=== PATIENT | male | born 1980 | race Caucasian/White ===

== ENCOUNTER 2023-05-28 18:47 | Inpatient (IN) | payer SELFPAY ==
[2023-05-28 18:51] VITALS: BP 172/90; PULSE 101; RESP 18; TEMP 36.8; O2SAT 100; BMI 27.6
--- NOTE | 2023-05-28 19:02 | XR_ITS ---
The [address] [address] Patient Name: CHRISTIANO FARRELL MRN: [id number] date: 1980 Sex: M Assigned Patient Location: ED.MAIN Current Patient Location: ER Accession/Order Number: [id number] Exam Date: 05/28/2023 20:00 Report Date: 05/28/2023 20:56 At the request of: JUDAH BYERS Procedure: XR foot RT min 3V EXAM: XR foot RT min 3V HISTORY: Infection COMPARISON: None. TECHNIQUE: 3 views of the right foot are performed. FINDINGS: There is lucency and bony erosion involving the distal phalanx of the great toe. There is soft tissue swelling, and soft tissue gas. Diffuse soft tissue edema is seen overlying the dorsal aspect of the foot. Atherosclerotic vascular calcific lesions are present. XR/XR foot RT min 3V IMPRESSION: Osteomyelitis involving the distal first phalanx. There is soft tissue gas. Electronically authenticated by: PADMINI HOLLEY Date: 05/28/2023 20:56
--- NOTE | 2023-05-28 19:03 | ED_ITS ---
Documented by User: Alena Powellon 05/28/23 21:46 HPI - General Adult General Chief complaint: Extremity Problem, Nontraumatic Stated complaint: Abscess on right foot Time Seen by Provider: 05/28/23 18:57 Source: patient Mode of arrival: walk-in Limitations: no limitations History of Present Illness HPI narrative: 43 year old male presents to the ED for a wound to his right great toe. Onset was 3 weeks ago. Reports it started as a callus that became infected. Reports having to wear a new pair of steel toe boots at work which he believes made it worse. He has since developed increased swelling, erythema. The area has also opened and has been bleeding. Denies fever, chills, weakness. Denies known hx DM. Rates his pain 5/10 at this time. Related Data Previous Rx's Medication Instructions Recorded doxycycline hyclate 100 mg capsule 100 mg PO BID 14 days #28 caps 05/30/23 hydrocodone 5 mg-acetaminophen 325 1 tab PO Q6H PRN pain 7 days #28 05/30/23 mg tablet tabs ondansetron 4 mg disintegrating 4 mg PO Q8H PRN nausea and 05/30/23 tablet vomiting 5 days #15 tabs sennosides 8.6 mg tablet (Senna 8.6 mg PO DAILY PRN constipation 7 05/30/23 Laxative) days #7 tabs sulfamethoxazole 800 1 tab PO BID 14 days #28 tabs 05/30/23 mg-trimethoprim 160 mg tablet Allergies Allergy/AdvReac Type Severity Reaction Status Date / Time No Known Drug Allergies Allergy Verified 05/28/23 18:51 Review of Systems ROS Constitutional Denies: fever or chills Cardiovascular Denies: chest pain Respiratory Denies: shortness of breath Musculoskeletal Reports: extremity pain Integumentary/Breast Reports: skin swelling, non-healing lesion and changes in skin color Neurological Denies: numbness in extremities or weakness in extremities PFSH PFSH Surgical History (Updated 05/28/23 @ 22:35 by Ni Luevano RN) Hx of tonsillectomy ?Z90.89 - Acquired absence of other organs (ICD-10) Social History (Updated 05/28/23 @ 22:52 by Ni Luevano RN) Within the past year, how often did you have a drink containing alcohol: 2-4 times a month Within the past year, how many standard drinks containing alcohol did you have on a typical day: 3 or 4 Within the past year, how often did you have six or more drinks on one occasion: weekly Total score: 5 Score interpretation: A score of 4 or more indicates drinking is likely to affect patient's safety. Smoking status: Former smoker Non-prescribed substance use: cannabis (any form) Highest level of school completed/degree received: high school graduate Are you now , , , , never or living with a partner: living with partner In a typical week, how many times do you talk on the telephone with family, friends, or neighbors: 3 or more times per week How often do you get together with friends or relatives: 3 or more times per week Little interest or pleasure in doing things: not at all Feeling down, depressed, or hopeless: not at all Feel stressed/tense/nervous/anxious/difficulty sleeping: not at all Do you think of yourself as: straight/heterosexual Gender Identity: male Exam Constitutional Vital Signs, click to edit/add: Last Vital Signs Temp 98.1 F 05/30/23 05:24 Pulse 87 05/30/23 05:24 Resp 18 05/30/23 05:24 BP 156/93 H 05/30/23 05:24 Pulse Ox 96 05/30/23 05:24 O2 Del Method Room Air 05/30/23 05:24 Common normals: no apparent distress and oriented x3 General appearance: cooperative Eye Common normals: conjunctivae normal and no scleral icterus Neck & C-Spine Common normals: supple Chest Chest: symmetrical chest wall rise Respiratory Common normals: normal respiratory effort Effort & inspection: symmetric chest movement Cardio Common normals: regular rate Peripheral pulses: posterior tibial pulses present and dorsalis pedis pulses present Extremity Other: Wound to right medial great toe. There is erythema, significant swelling to the great toe. There is an erythematous streak that extends up the foot and to the lower leg. Foul odor noted. Bloody drainage from the area currently. Neuro Common normals: oriented x3 Sensorium/orientation: awake and alert Speech: speech normal Course Vital Signs Vital signs: Vital Signs Temperature 98.3 F 05/28/23 18:51 Pulse Rate 101 H 05/28/23 18:51 Respiratory Rate 18 05/28/23 18:51 Blood Pressure 172/90 H 05/28/23 18:51 Pulse Oximetry 100 05/28/23 18:51 Oxygen Delivery Method Room Air 05/28/23 18:51 Temperature 98.1 F 05/30/23 05:24 Pulse Rate 87 05/30/23 05:24 Respiratory Rate 18 05/30/23 05:24 Blood Pressure 156/93 H 05/30/23 05:24 Pulse Oximetry 96 05/30/23 05:24 Oxygen Delivery Method Room Air 05/30/23 05:24 Medical Decision Making MDM Narrative Medical decision making narrative: WBC count was 13.6, sed rate 96, CRP 5.25. X-ray showed osteomyelitis involving the distal first phalanx; there is soft tissue gas. The patient was started on IV antibiotics. He will be admitted for further evaluation and treatment. I spoke with Dr. Martinez for podiatry. I spoke with Dr. Kathrine Rasmussen the hospitalist who accepted the patient for admission. A complete and detailed handoff report was given. The patient will be admitted to Dr. Logan. Differential Diagnosis Differential Diagnosis: Cellulitis, osteomyelitis. Medical Records Medical records reviewed: Yes I reviewed the patient's medical records Lab Data Lab results reviewed: Yes I reviewed the patient's lab results Labs: Lab Results 05/28/23 05/28/23 Range/Units 19:05 19:20 WBC 13.6 H (4.0-11.0) 10^3/uL RBC 4.42 L (4.70-6.10) 10^6/uL Hgb 12.2 L (14.0-18.0) g/dL Hct 37.5 L (42.0-54.0) % MCV 84.8 (80.0-94.0) fL MCH 27.6 (25.9-34.0) pg MCHC 32.5 (29.9-35.2) g/dL RDW 12.6 (11.0-15.0) % Plt Count 397 (150-450) 10^3/uL MPV 9.7 (9.5-13.5) fL Neut % (Auto) 76.7 H (43.0-75.0) % Lymph % (Auto) 14.8 L (20.5-60.0) % [place] % (Auto) 6.0 (1.7-12.0) % Eos % (Auto) 1.6 (0.9-7.0) % Baso % (Auto) 0.7 (0.2-2.0) % Neut # (Auto) 10.4 H (1.4-6.5) 10^3/uL Lymph # (Auto) 2.0 (1.2-3.8) 10^3/uL [place] # (Auto) 0.8 (0.3-0.8) 10^3/uL Eos # (Auto) 0.2 (0.0-0.7) 10^3/uL Baso # (Auto) 0.1 (0.0-0.1) 10^3/uL Abs Immat Gran (auto) 0.03 (0.00-0.03) 10^3/uL Imm/Tot Granulo (auto) 0.2 (0.0-0.5) % ESR 96 H (<=15) mm/hr Sodium 135 L (136-145) mmol/L Potassium 3.9 (3.5-5.1) mmol/L Chloride 99 (98-107) mmol/L Carbon Dioxide 29.3 (21.0-32.0) mmol/L Anion Gap 10.6 BUN 12.0 (7.0-18.0) mg/dL Creatinine 0.98 (0.70-1.30) mg/dL Est GFR ( Amer) >60 (>=60) Est GFR (Non-Af Amer) >60 (>=60) BUN/Creatinine Ratio 12.2 Glucose 183 H (74-106) mg/dL Lactate 1.3 (0.4-2.0) mmol/L Calcium 9.8 (8.5-10.1) mg/dL C-Reactive Protein 5.25 H (<=0.50) mg/dL POC Glucose 174 H (74-106) mg/dL Imaging Data XR right foot: Attestation: I have reviewed the pertinent imaging results. Radiologist's impression: Procedure: XR foot RT min 3V EXAM: XR foot RT min 3V HISTORY: Infection COMPARISON: None. TECHNIQUE: 3 views of the right foot are performed. FINDINGS: There is lucency and bony erosion involving the distal phalanx of the great toe. There is soft tissue swelling, and soft tissue gas. Diffuse soft tissue edema is seen overlying the dorsal aspect of the foot. Atherosclerotic vascular calcific lesions are present. XR/XR foot RT min 3V IMPRESSION: Osteomyelitis involving the distal first phalanx. There is soft tissue gas. Electronically authenticated by: PADMINI HOLLEY Date: 05/28/2023 20:56 Discharge Plan Discharge Chief Complaint: Extremity Problem, Nontraumatic Clinical Impression: Osteomyelitis of great toe of right foot Patient Disposition: Admitted as Observation Time of Disposition Decision: 21:36 Condition: Good Discharge Date/Time: 05/28/23 22:15 Documented by User: Yoko Wheatley MD 05/29/23 03:57 HPI - General Adult General Chief complaint: Extremity Problem, Nontraumatic Stated complaint: Abscess on right foot Time Seen by Provider: 05/28/23 18:57 Related Data Previous Rx's Medication Instructions Recorded doxycycline hyclate 100 mg capsule 100 mg PO BID 14 days #28 caps 05/30/23 hydrocodone 5 mg-acetaminophen 325 1 tab PO Q6H PRN pain 7 days #28 05/30/23 mg tablet tabs ondansetron 4 mg disintegrating 4 mg PO Q8H PRN nausea and 05/30/23 tablet vomiting 5 days #15 tabs sennosides 8.6 mg tablet (Senna 8.6 mg PO DAILY PRN constipation 7 05/30/23 Laxative) days #7 tabs sulfamethoxazole 800 1 tab PO BID 14 days #28 tabs 05/30/23 mg-trimethoprim 160 mg tablet Allergies Allergy/AdvReac Type Severity Reaction Status Date / Time No Known Drug Allergies Allergy Verified 05/28/23 18:51 PFSH PFSH Surgical History (Updated 05/28/23 @ 22:35 by Ni Luevano RN) Hx of tonsillectomy ?Z90.89 - Acquired absence of other organs (ICD-10) Social History (Updated 05/28/23 @ 22:52 by Ni Luevano RN) Within the past year, how often did you have a drink containing alcohol: 2-4 times a month Within the past year, how many standard drinks containing alcohol did you have on a typical day: 3 or 4 Within the past year, how often did you have six or more drinks on one occasion: weekly Total score: 5 Score interpretation: A score of 4 or more indicates drinking is likely to affect patient's safety. Smoking status: Former smoker Non-prescribed substance use: cannabis (any form) Highest level of school completed/degree received: high school graduate Are you now , , , , never or living with a partner: living with partner In a typical week, how many times do you talk on the telephone with family, friends, or neighbors: 3 or more times per week How often do you get together with friends or relatives: 3 or more times per week Little interest or pleasure in doing things: not at all Feeling down, depressed, or hopeless: not at all Feel stressed/tense/nervous/anxious/difficulty sleeping: not at all Do you think of yourself as: straight/heterosexual Gender Identity: male Exam Constitutional Vital Signs, click to edit/add: Last Vital Signs Temp 98.1 F 05/30/23 05:24 Pulse 87 05/30/23 05:24 Resp 18 05/30/23 05:24 BP 156/93 H 05/30/23 05:24 Pulse Ox 96 05/30/23 05:24 O2 Del Method Room Air 05/30/23 05:24 Course Vital Signs Vital signs: Vital Signs Temperature 98.3 F 05/28/23 18:51 Pulse Rate 101 H 05/28/23 18:51 Respiratory Rate 18 05/28/23 18:51 Blood Pressure 172/90 H 05/28/23 18:51 Pulse Oximetry 100 05/28/23 18:51 Oxygen Delivery Method Room Air 05/28/23 18:51 Temperature 98.1 F 05/30/23 05:24 Pulse Rate 87 05/30/23 05:24 Respiratory Rate 18 05/30/23 05:24 Blood Pressure 156/93 H 05/30/23 05:24 Pulse Oximetry 96 05/30/23 05:24 Oxygen Delivery Method Room Air 05/30/23 05:24 Medical Decision Making MDM Narrative Medical decision making narrative: WBC count was 13.6, sed rate 96, CRP 5.25. X-ray showed osteomyelitis involving the distal first phalanx; there is soft tissue gas. The patient was started on IV antibiotics. He will be admitted for further evaluation and treatment. I spoke with Dr. Martinez for podiatry. I spoke with Dr. Kathrine Rasmussen the hospitalist who accepted the patient for admission. A complete and detailed handoff report was given. The patient will be admitted to Dr. Logan. This 43-year-old male was seen and evaluated in conjunction with the nurse practitioner. Please refer to her full H and P. He presents for evaluation of marked redness, swelling, drainage and tenderness to the right great toe. He states this has been going on for several weeks. He has had callus on this foot for a period of time and has to wear steel toed boots. He states he has to stand at his job for 8 hours a day. He denies a history of MRSA. He denies a history of diabetes. There is lymphangitic streaking up the medial aspect of the right leg as well as the marked swelling and obvious infection of the right great toe. An IV was placed and he was medicated with IV fluids and Unasyn. His elevated white count at 13.6, elevated sedimentation rate and CRP. X-ray of the extremity shows osteomyelitis with soft tissue gas. The case was discussed with Dr. Martinez and he will be seen in consultation and admitted to the hospitalist service. He does not appear to be toxic or septic. Lab Data Lab results reviewed: Yes I reviewed the patient's lab results (He'll allocate a white count at 13.6, elevated sedimentation rate, ) Labs: Lab Results 05/28/23 05/28/23 Range/Units 19:05 19:20 WBC 13.6 H (4.0-11.0) 10^3/uL RBC 4.42 L (4.70-6.10) 10^6/uL Hgb 12.2 L (14.0-18.0) g/dL Hct 37.5 L (42.0-54.0) % MCV 84.8 (80.0-94.0) fL MCH 27.6 (25.9-34.0) pg MCHC 32.5 (29.9-35.2) g/dL RDW 12.6 (11.0-15.0) % Plt Count 397 (150-450) 10^3/uL MPV 9.7 (9.5-13.5) fL Neut % (Auto) 76.7 H (43.0-75.0) % Lymph % (Auto) 14.8 L (20.5-60.0) % [place] % (Auto) 6.0 (1.7-12.0) % Eos % (Auto) 1.6 (0.9-7.0) % Baso % (Auto) 0.7 (0.2-2.0) % Neut # (Auto) 10.4 H (1.4-6.5) 10^3/uL Lymph # (Auto) 2.0 (1.2-3.8) 10^3/uL [place] # (Auto) 0.8 (0.3-0.8) 10^3/uL Eos # (Auto) 0.2 (0.0-0.7) 10^3/uL Baso # (Auto) 0.1 (0.0-0.1) 10^3/uL Abs Immat Gran (auto) 0.03 (0.00-0.03) 10^3/uL Imm/Tot Granulo (auto) 0.2 (0.0-0.5) % ESR 96 H (<=15) mm/hr Sodium 135 L (136-145) mmol/L Potassium 3.9 (3.5-5.1) mmol/L Chloride 99 (98-107) mmol/L Carbon Dioxide 29.3 (21.0-32.0) mmol/L Anion Gap 10.6 BUN 12.0 (7.0-18.0) mg/dL Creatinine 0.98 (0.70-1.30) mg/dL Est GFR ( Amer) >60 (>=60) Est GFR (Non-Af Amer) >60 (>=60) BUN/Creatinine Ratio 12.2 Glucose 183 H (74-106) mg/dL Lactate 1.3 (0.4-2.0) mmol/L Calcium 9.8 (8.5-10.1) mg/dL C-Reactive Protein 5.25 H (<=0.50) mg/dL POC Glucose 174 H (74-106) mg/dL Discharge Plan Discharge Chief Complaint: Extremity Problem, Nontraumatic Clinical Impression: Osteomyelitis of great toe of right foot Patient Disposition: Admitted as Observation Time of Disposition Decision: 21:36 Condition: Good Discharge Date/Time: 05/28/23 22:15 Documented by User: Irving Arevalo MD 05/30/23 08:39 HPI - General Adult General Chief complaint: Extremity Problem, Nontraumatic Stated complaint: Abscess on right foot Time Seen by Provider: 05/28/23 18:57 Related Data Previous Rx's Medication Instructions Recorded doxycycline hyclate 100 mg capsule 100 mg PO BID 14 days #28 caps 05/30/23 hydrocodone 5 mg-acetaminophen 325 1 tab PO Q6H PRN pain 7 days #28 05/30/23 mg tablet tabs ondansetron 4 mg disintegrating 4 mg PO Q8H PRN nausea and 05/30/23 tablet vomiting 5 days #15 tabs sennosides 8.6 mg tablet (Senna 8.6 mg PO DAILY PRN constipation 7 05/30/23 Laxative) days #7 tabs sulfamethoxazole 800 1 tab PO BID 14 days #28 tabs 05/30/23 mg-trimethoprim 160 mg tablet Allergies Allergy/AdvReac Type Severity Reaction Status Date / Time No Known Drug Allergies Allergy Verified 05/28/23 18:51 PFSH PFSH Surgical History (Updated 05/28/23 @ 22:35 by Ni Luevano RN) Hx of tonsillectomy ?Z90.89 - Acquired absence of other organs (ICD-10) Social History (Updated 05/28/23 @ 22:52 by Ni Luevano RN) Within the past year, how often did you have a drink containing alcohol: 2-4 times a month Within the past year, how many standard drinks containing alcohol did you have on a typical day: 3 or 4 Within the past year, how often did you have six or more drinks on one occasion: weekly Total score: 5 Score interpretation: A score of 4 or more indicates drinking is likely to affect patient's safety. Smoking status: Former smoker Non-prescribed substance use: cannabis (any form) Highest level of school completed/degree received: high school graduate Are you now , , , , never or living with a partner: living with partner In a typical week, how many times do you talk on the telephone with family, friends, or neighbors: 3 or more times per week How often do you get together with friends or relatives: 3 or more times per week Little interest or pleasure in doing things: not at all Feeling down, depressed, or hopeless: not at all Feel stressed/tense/nervous/anxious/difficulty sleeping: not at all Do you think of yourself as: straight/heterosexual Gender Identity: male Exam Constitutional Vital Signs, click to edit/add: Last Vital Signs Temp 98.1 F 05/30/23 05:24 Pulse 87 05/30/23 05:24 Resp 18 05/30/23 05:24 BP 156/93 H 05/30/23 05:24 Pulse Ox 96 05/30/23 05:24 O2 Del Method Room Air 05/30/23 05:24 Course Vital Signs Vital signs: Vital Signs Temperature 98.3 F 05/28/23 18:51 Pulse Rate 101 H 05/28/23 18:51 Respiratory Rate 18 05/28/23 18:51 Blood Pressure 172/90 H 05/28/23 18:51 Pulse Oximetry 100 05/28/23 18:51 Oxygen Delivery Method Room Air 05/28/23 18:51 Temperature 98.1 F 05/30/23 05:24 Pulse Rate 87 05/30/23 05:24 Respiratory Rate 18 05/30/23 05:24 Blood Pressure 156/93 H 05/30/23 05:24 Pulse Oximetry 96 05/30/23 05:24 Oxygen Delivery Method Room Air 05/30/23 05:24 Medical Decision Making MDM Narrative Medical decision making narrative: WBC count was 13.6, sed rate 96, CRP 5.25. X-ray showed osteomyelitis involving the distal first phalanx; there is soft tissue gas. The patient was started on IV antibiotics. He will be admitted for further evaluation and treatment. I spoke with Dr. Martinez for podiatry. I spoke with Dr. Kathrine Rasmussen the hospitalist who accepted the patient for admission. A complete and detailed handoff report was given. The patient will be admitted to Dr. Logan. Dr Wheatley note This 43-year-old male was seen and evaluated in conjunction with the nurse practitioner. Please refer to her full H and P. He presents for evaluation of marked redness, swelling, drainage and tenderness to the right great toe. He states this has been going on for several weeks. He has had callus on this foot for a period of time and has to wear steel toed boots. He states he has to stand at his job for 8 hours a day. He denies a history of MRSA. He denies a history of diabetes. There is lymphangitic streaking up the medial aspect of the right leg as well as the marked swelling and obvious infection of the right great toe. An IV was placed and he was medicated with IV fluids and Unasyn. His elevated white count at 13.6, elevated sedimentation rate and CRP. X-ray of the extremity shows osteomyelitis with soft tissue gas. The case was discussed with Dr. Martinez and he will be seen in consultation and admitted to the hospitalist service. He does not appear to be toxic or septic. Dr Wheatley saw this patient, not Dr Arevalo Lab Data Labs: Lab Results 05/28/23 05/28/23 Range/Units 19:05 19:20 WBC 13.6 H (4.0-11.0) 10^3/uL RBC 4.42 L (4.70-6.10) 10^6/uL Hgb 12.2 L (14.0-18.0) g/dL Hct 37.5 L (42.0-54.0) % MCV 84.8 (80.0-94.0) fL MCH 27.6 (25.9-34.0) pg MCHC 32.5 (29.9-35.2) g/dL RDW 12.6 (11.0-15.0) % Plt Count 397 (150-450) 10^3/uL MPV 9.7 (9.5-13.5) fL Neut % (Auto) 76.7 H (43.0-75.0) % Lymph % (Auto) 14.8 L (20.5-60.0) % [place] % (Auto) 6.0 (1.7-12.0) % Eos % (Auto) 1.6 (0.9-7.0) % Baso % (Auto) 0.7 (0.2-2.0) % Neut # (Auto) 10.4 H (1.4-6.5) 10^3/uL Lymph # (Auto) 2.0 (1.2-3.8) 10^3/uL [place] # (Auto) 0.8 (0.3-0.8) 10^3/uL Eos # (Auto) 0.2 (0.0-0.7) 10^3/uL Baso # (Auto) 0.1 (0.0-0.1) 10^3/uL Abs Immat Gran (auto) 0.03 (0.00-0.03) 10^3/uL Imm/Tot Granulo (auto) 0.2 (0.0-0.5) % ESR 96 H (<=15) mm/hr Sodium 135 L (136-145) mmol/L Potassium 3.9 (3.5-5.1) mmol/L Chloride 99 (98-107) mmol/L Carbon Dioxide 29.3 (21.0-32.0) mmol/L Anion Gap 10.6 BUN 12.0 (7.0-18.0) mg/dL Creatinine 0.98 (0.70-1.30) mg/dL Est GFR ( Amer) >60 (>=60) Est GFR (Non-Af Amer) >60 (>=60) BUN/Creatinine Ratio 12.2 Glucose 183 H (74-106) mg/dL Lactate 1.3 (0.4-2.0) mmol/L Calcium 9.8 (8.5-10.1) mg/dL C-Reactive Protein 5.25 H (<=0.50) mg/dL POC Glucose 174 H (74-106) mg/dL Discharge Plan Discharge Chief Complaint: Extremity Problem, Nontraumatic Clinical Impression: Osteomyelitis of great toe of right foot Patient Disposition: Admitted as Observation Time of Disposition Decision: 21:36 Condition: Good Discharge Date/Time: 05/28/23 22:15
[2023-05-28 19:13] LABS: Glucometer 174 mg/dL (74-106)
[2023-05-28 19:30] VITALS: PULSE 79
[2023-05-28 19:36] LABS: Basophils Absolute Auto 0.1 10^3/uL (0.0-0.1); Basophils Percent Auto 0.7 % (0.2-2.0); Eosinophils Absolute Auto 0.2 10^3/uL (0.0-0.7); Eosinophils Percent Auto 1.6 % (0.9-7.0); Hematocrit 37.5 % (42.0-54.0); Hemoglobin 12.2 g/dL (14.0-18.0); Immature Granulocytes Abs Auto 0.03 10^3/uL (0.00-0.03); Immature Granulocytes Pct Auto 0.2 % (0.0-0.5); Lymphocytes Percent Auto 14.8 % (20.5-60.0); Mean Corpuscular HGB Conc 32.5 g/dL (29.9-35.2); Mean Corpuscular Hemoglobin 27.6 pg (25.9-34.0); Mean Corpuscular Volume 84.8 fL (80.0-94.0); Mean Platelet Volume 9.7 fL (9.5-13.5); Monocytes Absolute Auto 0.8 10^3/uL (0.3-0.8); Neutrophils Absolute Auto 10.4 10^3/uL (1.4-6.5); Neutrophils Percent Auto 76.7 % (43.0-75.0); Platelet Count 397 10^3/uL (150-450); Red Blood Count 4.42 10^6/uL (4.70-6.10); Red Cell Distribution Width 12.6 % (11.0-15.0); White Blood Count 13.6 10^3/uL (4.0-11.0)
[2023-05-28 19:40] LABS: Erythrocyte Sedimentation Rate 96 mm/hr (<=15)
[2023-05-28 19:48] LABS: Anion Gap 10.6; BUN Creatinine Ratio 12.2; C Reactive Protein 5.25 mg/dL (<=0.50); Calcium 9.8 mg/dL (8.5-10.1); Carbon Dioxide 29.3 mmol/L (21.0-32.0); Chloride 99 mmol/L (98-107); Estimated GFR (African America >60 (>=60); Estimated GFR (Non-African Ame >60 (>=60); Glucose 183 mg/dL (74-106); Potassium 3.9 mmol/L (3.5-5.1); Sodium 135 mmol/L (136-145)
[2023-05-28] MEDS: AMPICILLIN SODIUM/SULBACTAM NA 3 GM in 0.9 % SODIUM CHLORIDE 100 ML IV (20:06)
[2023-05-28 20:11] LABS: Lactate/Lactic Acid 1.3 mmol/L (0.4-2.0)
[2023-05-28 21:35] VITALS: BP 162/110; PULSE 97; O2SAT 99
--- NOTE | 2023-05-28 21:56 | W.PM.TELEPN ---
Progress Note: Subjective Subjective Interval history: 43yo man with no pertinent past medical history presented to the ED with pain in his right great toe. He states that he has had a callous on the lateral aspect of his right great toe for the last few years and has never had any issues with it in the past. About 3 weeks ago, he started a new job that required him to wear steel-tipped boots. He noticed that the callous had been unroofed and he has had progressive swelling and pain in that foot that eventually spread up to his knee. He had some chills and rated his pain as 5/10. Exam Constitutional Vital Signs, click to edit/add: Last Vital Signs Temp 98.3 F 05/28/23 18:51 Pulse 97 H 05/28/23 21:35 Resp 18 05/28/23 18:51 BP 162/110 H 05/28/23 21:35 Pulse Ox 99 05/28/23 21:35 O2 Del Method Room Air 05/28/23 21:35 Documenting provider has reviewed patient's vital signs: yes Common normals: no apparent distress, average body habitus, oriented x3, no limitations, healthy appearing, alert and well nourished [facility] Common normals: normocephalic, head/scalp atraumatic, hearing grossly normal bilaterally, external ears normal, external nose normal and moist oral mucous membranes Eye Common normals: PERRL, EOMs intact bilaterally, conjunctivae normal and no scleral icterus Neck & C-Spine Common normals: full ROM, no lymphadenopathy and supple Lymph Lymphatic: no lymphadenopathy noted Chest Common normals: inspection of chest normal and palpation of chest normal Respiratory Common normals: normal respiratory effort, no retractions, no use of accessory muscles and clear to auscultation bilaterally Cardio Common normals: no JVD, regular rate, regular rhythm, S1 normal heart sound, S2 normal heart sound and peripheral pulses 2+ throughout GI Common normals: Normal to inspection, nondistended, normoactive bowel sounds present, soft to palpation and non-tender Extremity Right lower extremity: foot and digits Right foot and digits: inspection Other: Swelling to his right toe with a visible wound on the lateral aspect of the toe. There is erythema that has streaked up to his knee. Neuro Common normals: oriented x3, moves all extremities, no focal motor deficits and no sensory deficits noted Meningeal signs: nuccal rigidity Progress Note: Objective Labs Labs: Short CBC 05/28/23 Range/Units 19:20 WBC 13.6 H (4.0-11.0) 10^3/uL Hgb 12.2 L (14.0-18.0) g/dL Hct 37.5 L (42.0-54.0) % Plt Count 397 (150-450) 10^3/uL BMP 05/28/23 19:20 Sodium 135 L Potassium 3.9 Chloride 99 Carbon Dioxide 29.3 BUN 12.0 Creatinine 0.98 Glucose 183 H Calcium 9.8 Imaging XR right foot: Radiologist's impression: CHRISTIANO FARRELL MRN: [facility]:[id number] date: 1980 Sex: M Assigned Patient Location: ED.MAIN Current Patient Location: ER Accession/Order Number: [id number] Exam Date: 05/28/2023 20:00 Report Date: 05/28/2023 20:56 At the request of: JUDAH BYERS Procedure: XR foot RT min 3V EXAM: XR foot RT min 3V HISTORY: Infection COMPARISON: None. TECHNIQUE: 3 views of the right foot are performed. FINDINGS: There is lucency and bony erosion involving the distal phalanx of the great toe. There is soft tissue swelling, and soft tissue gas. Diffuse soft tissue edema is seen overlying the dorsal aspect of the foot. Atherosclerotic vascular calcific lesions are present. XR/XR foot RT min 3V IMPRESSION: Osteomyelitis involving the distal first phalanx. There is soft tissue gas. Electronically authenticated by: PADMINI HOLLEY Date: 05/28/2023 20:56 Progress Note: A&P Assessment and Plan (1) Osteomyelitis of great toe of right foot: Assessment and Plan: The patient presented with swelling and pain in his right foot for the last 3 weeks. An X-ray showed osteomyelitis of the foot. - admit to hospitalist service - c/w unasyn - pain control - f/u blood and wound cultures - Podiatry consulted - track spread of cellulitis (2) Hyperglycemia: Assessment and Plan: BG is elevated. He denies any history of T2DM. Could possibly be secondary to inflammation and infection. - check HbA1c - Insulin sliding scale Telemedicine Attestation Telemedicine Attestation I conducted this encounter from [place] via secure live, [id number] video conference with the patient, located at [facility] with []. Prior to the interview, the risks and benefits of telemedicine were discussed with the patient and verbal consent was obtained.
[2023-05-28 22:21] VITALS: PULSE 101; RESP 16; TEMP 37.3; O2SAT 97; BMI 27.0
[2023-05-28 22:22] VITALS: BP 176/90; PULSE 101; RESP 18; TEMP 37.3; O2SAT 97
[2023-05-28] MEDS: ENOXAPARIN SODIUM 40 MG/0.4 ML SYRINGE SUBQ (23:17)
--- NOTE | 2023-05-28 23:51 | PC.NURSE ---
Wet to dry dressing applied to right great toe. Elevated on two pillows
[2023-05-29] VITALS (12 sets, daily range): BP systolic 105–188; BP diastolic 66–85; PULSE 50–100; RESP 10–20; TEMP 36.1–37.1; O2SAT 94–99
[2023-05-29] MEDS: AMPICILLIN SODIUM/SULBACTAM NA 3 GM in 0.9 % SODIUM CHLORIDE 100 ML IV (01:32)
[2023-05-29 05:37] LABS: Basophils Absolute Auto 0.1 10^3/uL (0.0-0.1); Basophils Percent Auto 0.8 % (0.2-2.0); Eosinophils Absolute Auto 0.2 10^3/uL (0.0-0.7); Eosinophils Percent Auto 1.9 % (0.9-7.0); Hematocrit 34.3 % (42.0-54.0); Immature Granulocytes Abs Auto 0.02 10^3/uL (0.00-0.03); Immature Granulocytes Pct Auto 0.2 % (0.0-0.5); Lymphocytes Absolute Auto 2.1 10^3/uL (1.2-3.8); Lymphocytes Percent Auto 22.6 % (20.5-60.0); Mean Corpuscular HGB Conc 32.1 g/dL (29.9-35.2); Mean Corpuscular Hemoglobin 27.4 pg (25.9-34.0); Mean Corpuscular Volume 85.5 fL (80.0-94.0); Monocytes Absolute Auto 0.7 10^3/uL (0.3-0.8); Monocytes Percent Auto 7.7 % (1.7-12.0); Neutrophils Absolute Auto 6.1 10^3/uL (1.4-6.5); Neutrophils Percent Auto 66.8 % (43.0-75.0); Platelet Count 321 10^3/uL (150-450); Red Blood Count 4.01 10^6/uL (4.70-6.10); Red Cell Distribution Width 12.6 % (11.0-15.0); White Blood Count 9.1 10^3/uL (4.0-11.0)
[2023-05-29 05:52] LABS: Estimated Average Glucose 217 mg/dL; Glycohemoglobin A1C 9.2 % (4.5-6.2)
[2023-05-29 05:53] LABS: Anion Gap 9.2; BUN Creatinine Ratio 13.5; Calcium 8.8 mg/dL (8.5-10.1); Carbon Dioxide 27.6 mmol/L (21.0-32.0); Chloride 104 mmol/L (98-107); Estimated GFR (African America >60 (>=60); Estimated GFR (Non-African Ame >60 (>=60); Glucose 302 mg/dL (74-106); Magnesium 2.3 mg/dL (1.8-2.4); Partial Thromboplastin Time 30.5 sec (22.3-36.2); Potassium 3.8 mmol/L (3.5-5.1); Prothrombin Time 10.6 sec (9.0-11.6); Sodium 137 mmol/L (136-145)
[2023-05-29 06:49] LABS: Alanine Aminotransferase 17 U/L (16-63); Albumin Globulin Ratio 0.6; Albumin Level 2.6 g/dL (3.4-5.0); Alkaline Phosphatase 66 U/L (46-116); Aspartate Amino Transferase 10 U/L (15-37); Bilirubin Direct 0.1 mg/dL (0.0-0.2); Bilirubin Total 0.3 mg/dL (0.2-1.0); Globulin 4.2 g/dL; Total Protein 6.8 g/dL (6.4-8.2)
[2023-05-29 06:50] LABS: C Reactive Protein 4.79 mg/dL (<=0.50)
--- NOTE | 2023-05-29 08:00 | P.HP_ITS ---
H&P: HPI History of Present Illness Chief complaint: Abscess on right foot OSTEOMYELITIS RIGHT GREAT TO Narrative: Presented to the emergency room with a 2-week history of increasing right great toe pain and swelling started having more drainage from it. In ER found to have cellulitis of the right great toe with drainage, culture obtained, x-ray shows likely osteomyelitis, patient mated for IV antibiotics. Patient failed outpatient treatment by using topical agents. Other significant finding in ER is a significant elevated glucose of over 300. Patient is not a known diabetic although has not seen a doctor in a number of years. Review of Systems ROS Status of ROS 10 or more systems reviewed and unremark able except as noted in history and below PFSH PFSH Surgical History (Updated 05/28/23 @ 22:35 by Ni Luevano RN) Hx of tonsillectomy ?Z90.89 - Acquired absence of other organs (ICD-10) Social History (Updated 05/28/23 @ 22:52 by Ni Luevano RN) Within the past year, how often did you have a drink containing alcohol: 2-4 times a month Within the past year, how many standard drinks containing alcohol did you have on a typical day: 3 or 4 Within the past year, how often did you have six or more drinks on one occasion: weekly Total score: 5 Score interpretation: A score of 4 or more indicates drinking is likely to affect patient's safety. Smoking status: Former smoker Non-prescribed substance use: cannabis (any form) Highest level of school completed/degree received: high school graduate Are you now , , , , never or living with a partner: living with partner In a typical week, how many times do you talk on the telephone with family, friends, or neighbors: 3 or more times per week How often do you get together with friends or relatives: 3 or more times per week Little interest or pleasure in doing things: not at all Feeling down, depressed, or hopeless: not at all Feel stressed/tense/nervous/anxious/difficulty sleeping: not at all Do you think of yourself as: straight/heterosexual Gender Identity: male Meds Home Medications and Allergies Home Medications Medication Instructions Recorded Confirmed Type No Known Home Medications 05/28/23 05/28/23 History Allergies Allergy/AdvReac Type Severity Reaction Status Date / Time No Known Drug Allergies Allergy Verified 05/28/23 18:51 Exam Constitutional Vital Signs, click to edit/add: Last Vital Signs Temp 98.7 F 05/29/23 04:32 Pulse 50 L 05/29/23 04:32 Resp 16 05/29/23 04:32 BP 188/82 H 05/29/23 04:32 Pulse Ox 96 05/29/23 04:32 O2 Del Method Room Air 05/29/23 04:32 Documenting provider has reviewed patient's vital signs: yes Common normals: no apparent distress Chest Common normals: inspection of chest normal Respiratory Common normals: normal respiratory effort Cardio Common normals: regular rate and regular rhythm GI Common normals: Normal to inspection, nondistended, normoactive bowel sounds present Extremity Other: Dressing on right foot so we will leave evaluation to podiatry Results Labs Labs: Short CBC 05/28/23 05/29/23 Range/Units 19:20 04:57 WBC 13.6 H 9.1 (4.0-11.0) 10^3/uL Hgb 12.2 L 11.0 L (14.0-18.0) g/dL Hct 37.5 L 34.3 L (42.0-54.0) % Plt Count 397 321 (150-450) 10^3/uL BMP 05/28/23 05/29/23 19:20 04:57 Sodium 135 L 137 Potassium 3.9 3.8 Chloride 99 104 Carbon Dioxide 29.3 27.6 BUN 12.0 13.0 Creatinine 0.98 0.96 Glucose 183 H 302 H Calcium 9.8 8.8 Liver Function 05/29/23 Range/Units 06:17 Total Bilirubin 0.3 (0.2-1.0) mg/dL Direct Bilirubin 0.1 (0.0-0.2) mg/dL AST 10 L (15-37) U/L ALT 17 (16-63) U/L Alkaline Phosphatase 66 (46-116) U/L Albumin 2.6 L (3.4-5.0) g/dL Assessment and Plan Assessment and Plan (1) Osteomyelitis of great toe of right foot: (2) Hyperglycemia: Plan Sinus tachycardia uncontrolled hypertension, uncontrolled hyperglycemia, leukocytosis, elevated sedimentation rate, elevated CRP secondary to right great toe osteomyelitis-consult to podiatry, vancomycin and Zosyn for antibiotic coverage. Cultures from wound and blood are pending. Appears to have new onset diabetes mellitus-sugars over 300 or more elevated than he would expect for stress reaction from the infection as outlined above. Start patient on metformin and glimepiride. Insulin sliding scale. Hypertension on admission-we will monitor daily so far improving Hyponatremia secondary to the hyperglycemia-monitor daily, improved already to normal. Likely iron deficiency anemia-monitor daily Mild protein calorie malnutrition-diet supplement Failing outpatient treatment with topical antibiotics and progression of the infection into the bone patient will likely require 2 to 3-day hospital stay, place patient inpatient status.
[2023-05-29] MEDS: INSULIN ASPART 300 UNIT/3 ML PEN SUBQ ×3 (08:30→22:12)
[2023-05-29] MEDS: VANCOMYCIN HCL 1,750 MG in 0.9 % SODIUM CHLORIDE 500 ML 250 MG IV ×2 (08:38→22:11)
--- NOTE | 2023-05-29 08:43 | CM.NOTE ---
Rounds made with Dr. Logan, consult to podiatry for further recommendations.
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
[2023-05-29] MEDS: PIPERACILLIN SODIUM/TAZOBACTAM 3.375 GM in 0.9 % SODIUM CHLORIDE 50 ML IV ×2 (10:46→17:01)
[2023-05-29] MEDS: HYDROCORTISONE SODIUM SUCC PF 100 MG/2 ML VIAL IVP ×2 (10:46→18:13)
--- NOTE | 2023-05-29 11:11 | ECG_ITS ---
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
[2023-05-29 11:32] LABS: Glucometer 75 mg/dL (74-106)
[2023-05-29 12:11] LABS: Glucometer 66 mg/dL (74-106)
[2023-05-29] MEDS: DEXTROSE 50 %-WATER 25 GM/50 ML SYRINGE 25 ML IV (12:19)
--- NOTE | 2023-05-29 12:32 | P.CN_ITS ---
Consult Note: [facility] Data of Consult Consult date: 05/29/23 Requesting Physician: Elie Logan MD Primary Care Provider: Non-Staff Physician, MD Consult Narrative Reason for consult: Diabetic right foot infection Narrative: patient is a 43-year-old uncontrolled type II diabetic male who presented to the emergency department last night with ulceratiion and infection of his right great toe. X-rays indicated osteomyelitis. He had leukocytosis and significant elevation in his inflammatory markers. He was admitted and placed on broad- spectrum antibiotics. At bedside patient relates to an ulcer on his right great toe which started approximately 2-3 weeks ago and become red hot swollen over the last few days. He relates to generalized malaise and anorexia but has been hemodynamically stable since admitted. He has never seen a firewood cutter and has not had an ulceration previously. In fact he has not closely followed up with his primary care provider therefore his diabetes was diagnosed upon admission. cc:: CC: Elie Logan MD Review of Systems ROS Status of ROS 10 or more systems reviewed and unremark able except as noted in history and below [facility] Surgical History (Updated 05/28/23 @ 22:35 by Ni Luevano RN) Hx of tonsillectomy ?Z90.89 - Acquired absence of other organs (ICD-10) Social History (Updated 05/28/23 @ 22:52 by Ni Luevano RN) Within the past year, how often did you have a drink containing alcohol: 2-4 times a month Within the past year, how many standard drinks containing alcohol did you have on a typical day: 3 or 4 Within the past year, how often did you have six or more drinks on one occasion: weekly Total score: 5 Score interpretation: A score of 4 or more indicates drinking is likely to affect patient's safety. Smoking status: Former smoker Non-prescribed substance use: cannabis (any form) Highest level of school completed/degree received: high school graduate Are you now , , , , never or living with a partner: living with partner In a typical week, how many times do you talk on the telephone with family, friends, or neighbors: 3 or more times per week How often do you get together with friends or relatives: 3 or more times per week Little interest or pleasure in doing things: not at all Feeling down, depressed, or hopeless: not at all Feel stressed/tense/nervous/anxious/difficulty sleeping: not at all Do you think of yourself as: straight/heterosexual Gender Identity: male Meds Home Medications and Allergies Home Medications Medication Instructions Recorded Confirmed Type No Known Home Medications 05/28/23 05/28/23 History Allergies Allergy/AdvReac Type Severity Reaction Status Date / Time No Known Drug Allergies Allergy Verified 05/28/23 18:51 Exam Narrative Exam Narrative: skin: There are two ulcerations each less than 1 cm on the plantar medial aspect of the right hallux which probe to bone and with purulent drainage. The hallux is erythematous and very swollen. There is also redness streaking up his right calf but no other fluctuance. Vascular: Palpable pedal pulses with intact digital hair. No Pain on squeeze Neuro: Absent protective and vibratory sensation MSK: Attempted range of motion of the great toe at the IPJ is painful. compartments are soft and compressible and patient is able to fire all muscle groups Constitutional Vital Signs, click to edit/add: Last Vital Signs Temp 98.7 F 05/29/23 04:32 Pulse 50 L 05/29/23 04:32 Resp 16 05/29/23 04:32 BP 188/82 H 05/29/23 04:32 Pulse Ox 96 05/29/23 04:32 O2 Del Method Room Air 05/29/23 04:32 Results Labs Labs: Short CBC 05/28/23 05/29/23 Range/Units 19:20 04:57 WBC 13.6 H 9.1 (4.0-11.0) 10^3/uL Hgb 12.2 L 11.0 L (14.0-18.0) g/dL Hct 37.5 L 34.3 L (42.0-54.0) % Plt Count 397 321 (150-450) 10^3/uL BMP 05/28/23 05/29/23 19:20 04:57 Sodium 135 L 137 Potassium 3.9 3.8 Chloride 99 104 Carbon Dioxide 29.3 27.6 BUN 12.0 13.0 Creatinine 0.98 0.96 Glucose 183 H 302 H Calcium 9.8 8.8 Liver Function 05/29/23 Range/Units 06:17 Total Bilirubin 0.3 (0.2-1.0) mg/dL Direct Bilirubin 0.1 (0.0-0.2) mg/dL AST 10 L (15-37) U/L ALT 17 (16-63) U/L Alkaline Phosphatase 66 (46-116) U/L Albumin 2.6 L (3.4-5.0) g/dL Assessment and Plan Assessment and Plan (1) Osteomyelitis of great toe of right foot: Assessment and Plan: recommended operative intervention today with partial versus total right great toe amputation (2) Hyperglycemia: Plan patient was seen and evaluated. Patient education was provided and all questions were answered to satisfaction. Recommended operative intervention today given the severity of his infection. Continue broad spectrum antibiotics until cultures have returned. Anesthesia notified and patient nothing by mouth since midnight Will follow
[2023-05-29 13:22] LABS: Glucometer 117 mg/dL (74-106)
[2023-05-29] MEDS: LIDOCAINE HCL 1% 100 MG/10 ML MDV INJ (13:30)
--- NOTE | 2023-05-29 14:08 | PM.ORONB ---
Brief Operative Note Date of procedure: 05/29/23 Pre-op diagnosis: right hallux osteomyelitis, diabetic foot ulcer with bone necrosis Post-op diagnosis: other (right hallux osteomyelitis, diabetic foot ulcer with bone necrosis, type 2 diabetes with peripheral neuropathy and foot ulcer) Procedure: PROCEDURE(S) PERFORMED: partial right hallux amputation INTRAOPERATIVE FINDINGS: purulence noted coming from the wound on the plantar medial aspect of the right great toe. Positive probe to bone. Upon dissection. Once the tract to the flexor tendon and plantar hallux but did not track proximal to the proximal phalanx. Obvious bone necrosis of the distal phalanx and questionable bone of the distal aspect of the proximal phalanx. No evidence of infection proximal to the metatarsal phalangeal joint. PROCEDURE IN DETAIL: Patient was identified in pre op and consent was reviewed. Correct side and site were identified and marked. Pre-op antibiotics were started. Patient was brought to OR suite and place on table in a supine position. General anesthesia was administered. Tourniquet applied. Operative extremity was prepped and draped in usual sterile fashion. Formal time-out was performed. no tourniquet was used A fishmouth incision was placed on the great toe which allowed excision of the ulcerations and of the toenail. The incision was extended to the level of the 1st metatarsal phalangeal joint. Full-thickness incision was taken down to bone. a soft tissue swab was taken to culture the purulence which is noted to be coming from the wound and originating from the plantar aspect of the toe. At the level of the interphalangeal joint all soft tissue attachments were released allowing disarticulation of the digit. The amputated digit was passed back table and sent for specimen. the wound was irrigated and all purulence was drained. There was slight discoloration of the distal medial proximal phalanx which was debrided and excised using rongeur and sagittal saw. Tendinous structures were cut proximally. Surgical site was irrigated with normal saline and inspected for any nonviable tissue which was removed. A clean rongeur was used to obtain a proximal bone culture which was sent to microbiology. Incision was then closed in one layer with nonabsorbable suture. Bulky dry sterile dressing was applied. POSTOPERATIVE PLAN: transfer to medical surgical unit Continue broad-spectrum antibiotics Patient may be discharged as early as tomorrow on oral antibiotics He is to follow-up with us in the wound center next week Partial protected weightbearing to the right heel Advance diet as tolerated Will reevaluate tomorrow morning Implants: none Anesthesia: General-LMA Surgeon: Eder Martinez Front Loader Residential Driver: Angelo Adame Estimated blood loss (mL): 25 Tourniquet time (min): 0 Pathology: other (Swab (pus) & proximal clean bone culture from proximal phalanx; Distal phalanx and portion of proximal phalanx sent to pathology) Condition: stable Disposition: PACU
[2023-05-29] MEDS: BUPIVACAINE HCL 0.5% PF 50 MG/10 ML VIAL INJ (14:09)
[2023-05-29 14:33] LABS: Glucometer 138 mg/dL (74-106)
[2023-05-29 16:54] LABS: Glucometer 309 mg/dL (74-106)
[2023-05-29] MEDS: METFORMIN HCL 500 MG TABLET PO (17:00)
[2023-05-29] MEDS: 0.9 % SODIUM CHLORIDE 250 ML 20 ML IV (17:02)
[2023-05-29 20:03] LABS: Glucometer 351 mg/dL (74-106)
[2023-05-29] MEDS: JUVEN PACKET 1 PACKET FEED TUBE (20:12)
[2023-05-29] MEDS: ENSURE HP 237 ML LIQUID PO (20:12)
[2023-05-29] MEDS: ENOXAPARIN SODIUM 40 MG/0.4 ML SYRINGE SUBQ (23:45)
[2023-05-30] MEDS: HYDROCORTISONE SODIUM SUCC PF 100 MG/2 ML VIAL IVP (01:24)
[2023-05-30] MEDS: PIPERACILLIN SODIUM/TAZOBACTAM 3.375 GM in 0.9 % SODIUM CHLORIDE 50 ML IV ×2 (01:29→11:29)
[2023-05-30 05:16] LABS: Basophils Percent Auto 0.2 % (0.2-2.0); Hematocrit 35.3 % (42.0-54.0); Hemoglobin 11.2 g/dL (14.0-18.0); Immature Granulocytes Abs Auto 0.06 10^3/uL (0.00-0.03); Immature Granulocytes Pct Auto 0.4 % (0.0-0.5); Lymphocytes Percent Auto 6.4 % (20.5-60.0); Mean Corpuscular HGB Conc 31.7 g/dL (29.9-35.2); Mean Corpuscular Hemoglobin 27.4 pg (25.9-34.0); Mean Corpuscular Volume 86.3 fL (80.0-94.0); Monocytes Absolute Auto 0.6 10^3/uL (0.3-0.8); Monocytes Percent Auto 3.6 % (1.7-12.0); Neutrophils Absolute Auto 14.5 10^3/uL (1.4-6.5); Neutrophils Percent Auto 89.4 % (43.0-75.0); Platelet Count 361 10^3/uL (150-450); Red Blood Count 4.09 10^6/uL (4.70-6.10); Red Cell Distribution Width 12.7 % (11.0-15.0); White Blood Count 16.2 10^3/uL (4.0-11.0)
[2023-05-30 05:24] VITALS: BP 156/93; PULSE 87; RESP 18; TEMP 36.7; O2SAT 96
[2023-05-30 05:27] LABS: Erythrocyte Sedimentation Rate 65 mm/hr (<=15)
[2023-05-30 05:37] LABS: Alanine Aminotransferase 17 U/L (16-63); Albumin Globulin Ratio 0.6; Albumin Level 2.5 g/dL (3.4-5.0); Alkaline Phosphatase 56 U/L (46-116); Anion Gap 9.8; Aspartate Amino Transferase 9 U/L (15-37); BUN Creatinine Ratio 21.1; Bilirubin Total 0.3 mg/dL (0.2-1.0); Carbon Dioxide 27.4 mmol/L (21.0-32.0); Chloride 102 mmol/L (98-107); Estimated GFR (African America >60 (>=60); Estimated GFR (Non-African Ame >60 (>=60); Globulin 4.3 g/dL; Glucose 287 mg/dL (74-106); Potassium 4.2 mmol/L (3.5-5.1); Sodium 135 mmol/L (136-145); Total Protein 6.8 g/dL (6.4-8.2)
[2023-05-30 05:47] LABS: C Reactive Protein 3.59 mg/dL (<=0.50)
[2023-05-30] MEDS: 0.9 % SODIUM CHLORIDE 1,000 ML 500 ML IV ×2 (06:53→09:04)
--- NOTE | 2023-05-30 07:42 | CM.NOTE ---
Rounds made with Dr. Logan, discussed discharge tomorrow d/t awaiting culture report.
--- NOTE | 2023-05-30 07:57 | P.DS_ITS ---
DS: Providers Provider Date of admission: 05/28/23 22:15 Primary care physician: Non-Staff Physician, Consults: 05/28/23 23:58 Consult to Podiatry Routine Consulting Provider: Eder Martinez Reason for consultation: Osteomyelitis Has provider been notified: Yes 05/29/23 07:56 Consult to Engineering Manager Routine Reason for consultation: new onset DM Has provider been notified: No 05/30/23 Physical Therapy Eval and Treat Routine Reason for consultation: post-op DS: Diagnosis Discharge Diagnosis (1) Osteomyelitis of great toe of right foot: (2) Hyperglycemia: Plan Sinus tachycardia uncontrolled hypertension, uncontrolled hyperglycemia, leukocytosis, elevated sedimentation rate, elevated CRP secondary to right great toe osteomyelitis-surgery in consultation, surgery completed yesterday, wound dressing in place. Appears to have new onset diabetes mellitus-continue to sliding scale, medication yesterday made his sugar go significantly elevated that has been stopped. Will give fluid resuscitation today try to flush out the sugars, possible discharge tomorrow Hypertension on admission-we will monitor daily so far improving Hyponatremia secondary to the hyperglycemia-secondary to hyperglycemia Likely iron deficiency anemia-monitor daily Leukocytosis this could be related to the infection but also related to medication given yesterday Mild protein calorie malnutrition-diet supplement DS: Summary Hospital Course Hospital Course: Patient has been admitted with osteomyelitis of his foot. Taken to surgery. Also appeared to have new onset diabetes mellitus. He was given diabetic teaching. With amputation completed, pain control to be discharged home in improving condition. Medications see list. Follow-up with the PCP within the next week or so. Time Spent with Patient Time attestation: Total time spent providing and/or coordinating discharge services: Exam Constitutional Vital Signs, click to edit/add: Last Vital Signs Temp 98.1 F 05/30/23 14:21 Pulse 90 05/30/23 14:21 Resp 16 05/30/23 14:21 BP 157/93 H 05/30/23 14:21 Pulse Ox 95 05/30/23 14:21 O2 Del Method Room Air 05/30/23 14:21 DS: Data Data Completed and Pending Labs on day of discharge: Preliminary micro results at discharge 05/29/23 13:45 - Preliminary Abscess - Right Big - Preliminary 05/29/23 13:50 - Preliminary Bone 05/29/23 13:50 - Preliminary Bone 05/29/23 13:45 - Preliminary Abscess - Right Big Discharge Plan Discharge Disposition: Home, Self-Care Condition: Good Discharge Medications: New doxycycline hyclate 100 mg capsule 100 mg PO BID 14 Days Qty: 28 0RF hydrocodone-acetaminophen 5-325 mg tablet 1 tab PO Q6H PRN (Reason: pain) 7 Days Qty: 28 0RF sennosides [Senna Laxative] 8.6 mg tablet 8.6 mg PO DAILY PRN (Reason: constipation) 7 Days Qty: 7 0RF sulfamethoxazole-trimethoprim 800-160 mg tablet 1 tab PO BID 14 Days Qty: 28 0RF ondansetron 4 mg tablet,disintegrating 4 mg PO Q8H PRN (Reason: nausea and vomiting) 5 Days Qty: 15 0RF metformin 500 mg Tablet 500 mg PO BIDWM Qty: 60 11RF glimepiride 2 mg Tablet 4 mg PO QD Qty: 60 11RF (DME) lancets 30 gauge misc See Rx Instructions .Route Qty: 100 0RF Rx Instructions: bid (DME) blood-glucose meter Kit See Rx Instructions .Route Qty: 1 0RF Rx Instructions: As directed (DME) Blood Glucose Test Strip See Rx Instructions .Route Qty: 100 11RF Rx Instructions: As directed cephalexin 500 mg capsule 1,000 mg PO BID Qty: 60 0RF Activity: return to work once cleared by your PCP/specialist Diet: advance to your usual diet Patient Instructions: Sulfamethoxazole/Trimethoprim (By mouth), Doxycycline (By mouth), Hydrocodone/Acetaminophen (By mouth), Ondansetron (By mouth), Glimepiride (By mouth), Metformin (By mouth), Osteomyelitis (DC), Diabetic Hyperglycemia (DC) Activity Restrictions/Additional Instructions: Heel weight-bear as tolerated to the right lower extremity with surgical shoe at all times when walking. Do not need to sleep in the shoe. Leave dressing to right foot clean dry and intact. Do not attempt to remove the dressing or get it wet. Please take medications as prescribed. Please rest, ice around the right ankle and elevate the right foot below your chest to assist with pain and swelling. Please follow-up with Dr. Martinez's office in 7 to 10 days. Please call the office to confirm appointment. Forms: Portal Instructions Referrals: Eder Martinez DPM [Physician] - Follow Up Appointments: @ 9:30am with Dr. Logan [phone] Martinez's office to schedule a follow up appt. for 5-7 days following discharge. [phone] Discharge Date/Time: 05/30/23 15:50
--- NOTE | 2023-05-30 08:21 | P.PN_ITS ---
Progress Note: Subjective Subjective Interval history: No new complaints this morning. Exam Constitutional Vital Signs, click to edit/add: Last Vital Signs Temp 98.1 F 05/30/23 05:24 Pulse 87 05/30/23 05:24 Resp 18 05/30/23 05:24 BP 156/93 H 05/30/23 05:24 Pulse Ox 96 05/30/23 05:24 O2 Del Method Room Air 05/30/23 05:24 Documenting provider has reviewed patient's vital signs: yes Common normals: no apparent distress Chest Common normals: inspection of chest normal Respiratory Common normals: normal respiratory effort Cardio Common normals: regular rate and regular rhythm GI Common normals: Normal to inspection, nondistended, normoactive bowel sounds present Extremity Other: Dressing on right foot so we will leave evaluation to podiatry Progress Note: Objective Labs Labs: Short CBC 05/30/23 Range/Units 04:37 WBC 16.2 H (4.0-11.0) 10^3/uL Hgb 11.2 L (14.0-18.0) g/dL Hct 35.3 L (42.0-54.0) % Plt Count 361 (150-450) 10^3/uL BMP 05/30/23 04:37 Sodium 135 L Potassium 4.2 Chloride 102 Carbon Dioxide 27.4 BUN 23.0 H Creatinine 1.09 Glucose 287 H Calcium 9.0 Liver Function 05/30/23 Range/Units 04:37 Total Bilirubin 0.3 (0.2-1.0) mg/dL AST 9 L (15-37) U/L ALT 17 (16-63) U/L Alkaline Phosphatase 56 (46-116) U/L Albumin 2.5 L (3.4-5.0) g/dL Progress Note: A&P Assessment and Plan (1) Osteomyelitis of great toe of right foot: (2) Hyperglycemia: Plan Sinus tachycardia uncontrolled hypertension, uncontrolled hyperglycemia, leukocytosis, elevated sedimentation rate, elevated CRP secondary to right great toe osteomyelitis-surgery in consultation, surgery completed yesterday, wound dressing in place. Appears to have new onset diabetes mellitus-continue to sliding scale, medication yesterday made his sugar go significantly elevated that has been stopped. Will give fluid resuscitation today try to flush out the sugars, possible discharge tomorrow Hypertension on admission-we will monitor daily so far improving Hyponatremia secondary to the hyperglycemia-secondary to hyperglycemia Likely iron deficiency anemia-monitor daily Leukocytosis this could be related to the infection but also related to medication given yesterday Mild protein calorie malnutrition-diet supplement Failing outpatient treatment with topical antibiotics and progression of the infection into the bone patient will likely require 2 to 3-day hospital stay, place patient inpatient status. ?
[2023-05-30] MEDS: JUVEN PACKET 1 PACKET FEED TUBE (09:04)
[2023-05-30] MEDS: ENSURE HP 237 ML LIQUID PO (09:04)
[2023-05-30] MEDS: METFORMIN HCL 500 MG TABLET PO (09:04)
[2023-05-30] MEDS: GLIMEPIRIDE 2 MG TABLET 4 MG PO (09:04)
[2023-05-30] MEDS: INSULIN ASPART 300 UNIT/3 ML PEN SUBQ ×2 (09:06→11:39)
--- NOTE | 2023-05-30 11:01 | PM.PN ---
Progress Note: Subjective Subjective Interval history: Patient seen and evaluated at bedside resting comfortably. POD #1 s/p I&D with partial hallux amputation of right foot DOS 05/29/2023. Denies any acute events overnight. States pain is very mild, improved from preop, controlled with p.o. meds. Denies any other acute lower extremity complaints and denies any constitutional symptoms at time of visit, . Exam Narrative Exam Narrative: Surgical dressing right lower extremity left CDI. CFT intact to digits. Prior erythema to proximal calf improved, no edema or ecchymosis proximal or distal to dressing. Active passive range of motion digits present. Light touch sensation intact. No pain with calf or thigh compression. Constitutional Vital Signs, click to edit/add: Last Vital Signs Temp 98.1 F 05/30/23 05:24 Pulse 87 05/30/23 05:24 Resp 18 05/30/23 05:24 BP 156/93 H 05/30/23 05:24 Pulse Ox 96 05/30/23 05:24 O2 Del Method Room Air 05/30/23 05:24 Progress Note: Objective Labs Labs: Short CBC 05/30/23 Range/Units 04:37 WBC 16.2 H (4.0-11.0) 10^3/uL Hgb 11.2 L (14.0-18.0) g/dL Hct 35.3 L (42.0-54.0) % Plt Count 361 (150-450) 10^3/uL BMP 05/30/23 04:37 Sodium 135 L Potassium 4.2 Chloride 102 Carbon Dioxide 27.4 BUN 23.0 H Creatinine 1.09 Glucose 287 H Calcium 9.0 Liver Function 05/30/23 Range/Units 04:37 Total Bilirubin 0.3 (0.2-1.0) mg/dL AST 9 L (15-37) U/L ALT 17 (16-63) U/L Alkaline Phosphatase 56 (46-116) U/L Albumin 2.5 L (3.4-5.0) g/dL Progress Note: A&P Assessment and Plan (1) Osteomyelitis of great toe of right foot: (2) Hyperglycemia: Plan Patient examined and evaluated. All findings discussed with patient all questions answered to patient's satisfaction. Labs reviewed, leukocytosis at 16, likely postsurgical in nature. Surgical dressing right lower extremity left CDI. I did change the outer layer of the dressing and remove the splint portion and applied single layer modified Shipley compression and Charli wrap. He may heel weight-bear as tolerated with a surgical shoe to the right foot. Stable to DC from podiatry's perspective, follow-up in [address] Martinez's office. Pain medication and antibiotics sent to patient's pharmacy on file. Rest per primary, please call with any questions or concerns.
[2023-05-30] MEDS: VANCOMYCIN HCL 1,750 MG in 0.9 % SODIUM CHLORIDE 500 ML 250 MG IV (11:29)
[2023-05-30 11:43] LABS: Glucometer 311 mg/dL (74-106)
[2023-05-30 14:21] VITALS: BP 157/93; PULSE 90; RESP 16; TEMP 36.7; O2SAT 95
--- NOTE | 2023-05-30 15:27 | PC.NURSE ---
diabeetic education being completed at this time
--- NOTE | 2023-05-30 15:28 | PC.NURSE ---
iv removed at this time for discharge
--- NOTE | 2023-05-30 15:35 | CM.NOTE ---
Pt okay to discharge home without needs. Pt has walking boot.
--- NOTE | 2023-05-30 16:48 | NUTR.NU ---
Pt is new diabetic. Provided CCD diet education to pt + prior to discharge; gave handouts and Dietitian contact information. Will follow PRN.
== END 2023-05-30 15:50 | disposition home or self-care (01) | DRG 617 ==
LOC: ER 21:36 → MS 22:17
PROVIDERS: Internal Medicine; Nurse Practitioner Family; Podiatrist Foot & Ankle Surgery; Admitting Provider Family Medicine; Emergency Provider Emergency Medicine; Visit Provider Family Medicine
PROC: 0Y6P0Z3 Detachment at Right 1st Toe, Low, Open Approach (ICD-10-PCS; principal; 2023-05-29 12:15)
DX: E11.69 Type 2 diabetes mellitus with other specified complication (principal); E44.1 Mild protein-calorie malnutrition; L02.611 Cutaneous abscess of right foot; M86.9 Osteomyelitis, unspecified; E87.1 Hypo-osmolality and hyponatremia; L03.031 Cellulitis of right toe; E11.621 Type 2 diabetes mellitus with foot ulcer; L97.514 Non-pressure chronic ulcer of other part of right foot with necrosis of bone; E11.21 Type 2 diabetes mellitus with diabetic nephropathy; E11.65 Type 2 diabetes mellitus with hyperglycemia; I10 Essential (primary) hypertension; D50.9 Iron deficiency anemia, unspecified; D72.829 Elevated white blood cell count, unspecified; R00.0 Tachycardia, unspecified; R70.0 Elevated erythrocyte sedimentation rate; Z68.27 Body mass index [BMI] 27.0-27.9, adult; Z87.891 Personal history of nicotine dependence; Z79.899 Other long term (current) drug therapy
CPT/HCPCS: 36415; 36416; 73630; 80048; 80053; 80076; 80202; 82948; 83036; 83605; 83735; 85025; 85610; 85652; 85730; 86140; 87040; 87070; 87076; 87102; 87116; 87150; 87186; 87205; 87206; 88305; 88311; 93005; 96365; 96366; 96367; 96368; 96372; 96375; 96376; 99285; 99999; J1720; J2704; J3370; Q3014

== ENCOUNTER 2023-10-27 17:20 | Day surgery (SDC) | payer OTHER, SELFPAY ==
--- NOTE | 2023-10-27 | FL_ITS ---
[address] [address] Patient Name: CHRISTIANO FARRELL MRN: [id number] date: 1980 Sex: M [facility] Current Patient Location: Accession/Order Number: [id number] Exam Date: 10/27/2023 18:00 Report Date: 10/28/2023 11:36 At the request of: LATONYA STROUD Procedure: FL fluoroscopy <1hr NON-READ EXAM: FL fluoroscopy <1hr NON-READ HISTORY: TECHNIQUE: FINDINGS: Please see Operative Report. Electronically authenticated by: RADIOLOGIST NO Date: 10/28/2023 11:36
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
--- NOTE | 2023-10-27 17:36 | PM.ORHP ---
History of Present Illness History of Present Illness Chief complaint: Irrigation and Debridement of Left Long Finger Narrative: Patient reports left long finger pain. Last Friday, October 20 he had a metal shaving in his long finger. He reports he thought he was able to get the metal shaving out and did well until Friday when he woke up he had pain and swelling in his long finger. He presented to Dr. Logan's office today who referred him to me. The patient reports pain in the long finger. No systemic signs of infection. He reports a history of diabetes that was diagnosed a year ago after requiring a partial toe amputation for nonhealing infection. He reports his diabetes is diet controlled. Review of Systems ROS Status of ROS 10 or more systems reviewed and unremarkable except as noted in history and below [facility] Medical History (Updated 10/27/23 @ 17:41 by Aurelio Srivastava MD) Diabetes ?E11.9 - Type 2 diabetes mellitus without complications (ICD-10) Amputation toe ?S98.139A - Complete traumatic amputation of one unspecified lesser toe, initial encounter (ICD-10) Hyperglycemia ?R73.9 - Hyperglycemia, unspecified (ICD-10) Osteomyelitis of great toe of right foot ?M86.9 - Osteomyelitis, unspecified (ICD-10) Surgical History (Updated 05/28/23 @ 22:35 by Ni Luevano RN) Hx of tonsillectomy ?Z90.89 - Acquired absence of other organs (ICD-10) Social History (Updated 10/27/23 @ 17:29 by Aaliyah Mendoza RN) Within the past year, how often did you have a drink containing alcohol: 2-4 times a month Within the past year, how many standard drinks containing alcohol did you have on a typical day: 3 or 4 Within the past year, how often did you have six or more drinks on one occasion: weekly Total score: 5 Score interpretation: A score of 4 or more indicates drinking is likely to affect patient's safety. 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 Highest level of school completed/degree received: high school graduate Are you now , , , , never or living with a partner: living with partner In a typical week, how many times do you talk on the telephone with family, friends, or neighbors: 3 or more times per week How often do you get together with friends or relatives: 3 or more times per week Little interest or pleasure in doing things: not at all Feeling down, depressed, or hopeless: not at all Feel stressed/tense/nervous/anxious/difficulty sleeping: not at all Do you think of yourself as: straight/heterosexual Gender Identity: male Meds Home Medications and Allergies Allergies Allergy/AdvReac Type Severity Reaction Status Date / Time No Known Drug Allergies Allergy Verified 05/28/23 18:51 Exam Constitutional Documenting provider has reviewed patient's vital signs: yes Common normals: no apparent distress General appearance: cooperative and comfortable Orientation/consciousness: Yes awake, Yes oriented to person, Yes oriented to place and Yes oriented to time Chest Common normals: inspection of chest normal Respiratory Common normals: normal respiratory effort, no retractions, no use of accessory muscles and clear to auscultation bilaterally Cardio Common normals: regular rate and regular rhythm GI Common normals: Normal to inspection, nondistended, normoactive bowel sounds present Extremity Other: Left long finger swollen over the pulp with a wound that is scabbed over. Tender to palpation directly overlying this. No flexor tenderness proximally and no extensor tenderness. Results Labs Labs: All other labs normal. Assessment and Plan Assessment and Plan (1) Adriano of finger of left hand: Plan I have recommended to the patient irrigation debridement of his left long finger infection. Will place him on oral antibiotics. Will have him follow closely. Have discussed risks of this infection including need for additional surgery, the potential of symptoms getting worse and needing a finger amputation which she understands given his prior history of a toe amputated from an infection. I have gone through informed consent with the patient. He understands risks associated with the surgery and has elected to proceed.
[2023-10-27 17:40] VITALS: BP 143/81; PULSE 85; TEMP 36.2; O2SAT 99
[2023-10-27] MEDS: LACTATED RINGER'S SOLUTION 1,000 ML 50 ML IV (17:43)
[2023-10-27] MEDS: LIDOCAINE HCL 1% 100 MG/10 ML MDV 5 ML INJ (17:45)
[2023-10-27] MEDS: BUPIVACAINE HCL 0.5% PF 50 MG/10 ML VIAL 5 ML INJ (17:45)
[2023-10-27] MEDS: CEFAZOLIN SODIUM/DEXTROSE,ISO 2 GM/50 ML PIGGYBACK IV (17:48)
--- NOTE | 2023-10-27 18:27 | P.ORPRC_ITS ---
Procedure Note Date of procedure: 10/27/23 Pre-op diagnosis: Adriano left long finger Post-op diagnosis: same as pre-op Procedure: Operation: Irrigation and debridement Operative procedure: After informed consent was obtained the patient was brought to the operating room. Preoperatively additional block was placed to the left long finger with 5 mL 1% lidocaine plain combined with 5 mL 0.5% Marcaine plain. Left hand was prepped and draped in usual sterile fashion. The fluctuant area over the volar aspect of the distal phalanx of the left long finger was incised with a 15 blade. Gross purulence was expressed. Culture swab was used for aerobic and anaerobic cultures. The wound was debrided with a curette and with a [place] elevator. Infection was down to bone but no soft bone was encountered. Wound was irrigated with a liter of fluid and then left open. A sterile dressing was placed. Patient was brought to the recovery room in stable condition. There were no intraoperative or immediate postoperative complications. Anesthesia: local Surgeon: Aurelio Srivastava Estimated blood loss (mL): 2 Pathology: none sent Condition: stable Disposition: PACU
== END 2023-10-27 18:34 | disposition home or self-care (01) ==
PROVIDERS: Visit Provider Orthopaedic Surgery
PROC: (CPT 26011; principal; 2023-10-27 17:30)
DX: L03.012 Cellulitis of left finger (principal); E11.9 Type 2 diabetes mellitus without complications; Z89.429 Acquired absence of other toe(s), unspecified side; Z87.891 Personal history of nicotine dependence
CPT/HCPCS: 26011; 76000; 87070; 87075; 87150; 87186; 87205; 99999